=== PATIENT | female | born 1975 | race African-American/Black ===

== ENCOUNTER 2019-05-19 15:09 | Outpatient (CLI) | payer OTHER ==
--- NOTE | 2019-05-19 15:50 | RAD ---
XR Chest Pa Lat STANDARD HISTORY: Cough COMPARISON: None FINDINGS: The heart size is normal. The lungs are well expanded without focal areas of consolidation, pneumothorax or pleural effusions. IMPRESSION: No radiographic evidence of acute cardiopulmonary process.
--- NOTE | 2019-05-19 15:51 | RAD ---
XR Knee Lt 3 View HISTORY: Left knee pain FINDINGS: No fracture or dislocation is identified.
== END 2019-05-19 15:10 | disposition home or self-care (01) ==
LOC: SCSRAD 15:09
PROVIDERS: ATTEND Family Medicine
DX: S83.005S Unspecified dislocation of left patella, sequela (principal); R05 Cough
CPT/HCPCS: 36415; 71046; 83520; 85652; 86038; 86140; 86200; 86225

== ENCOUNTER 2019-06-24 08:24 | Outpatient (CLI) | payer OTHER ==
--- NOTE | 2019-06-24 09:02 | MMO ---
Bilateral MAMMO Bilat Screen [facility]. CLINICAL HISTORY: Patient is 44 years old and is seen for screening. The patient has no family history of breast cancer. The patient has no personal history of cancer. VIEWS: The views performed were: bilateral craniocaudal with tomosynthesis and bilateral mediolateral oblique with tomosynthesis. This study has been interpreted with the assistance of computer-aided detection. MAMMOGRAM FINDINGS: There are scattered fibroglandular densities. There are no suspicious masses, suspicious calcifications, or new areas of architectural distortion. IMPRESSION: THERE IS NO MAMMOGRAPHIC EVIDENCE OF MALIGNANCY. A ROUTINE FOLLOW-UP MAMMOGRAM IN 1 YEAR IS RECOMMENDED. THE RESULTS OF THIS EXAM WERE SENT TO THE PATIENT. ACR BI-RADS Category 1 - Negative MAMMOGRAPHY NOTE: 1. A negative mammogram report should not delay a biopsy if a dominant of clinically suspicious mass is present. 2. Approximately 10% to 15% of breast cancers are not detected by mammography. 3. Adenosis and dense breasts may obscure an underlying neoplasm. Reported by: KATHY CEDEÑO MD Electonically Signed: [id number]
--- NOTE | 2019-06-24 09:37 | ULT ---
LEFT LOWER EXTREMITY VENOUS DUPLEX ULTRASOUND INCLUDING COLOR AND SPECTRAL DOPPLER IMAGING: HISTORY: Left leg and calf pain, prior dislocation of left patella. FINDINGS: Exam includes visualization of the left common femoral, superficial femoral, profunda femoral, greate r saphenous, popliteal, trifurcation, and posterior tibial vein regions. There is phasic flow at all levels with normal compressibility and normal augmentation. No intraluminal thrombus. IMPRESSION: No evidence for deep venous thrombosis. POS: [facility]
== END 2019-06-24 08:25 | disposition home or self-care (01) ==
LOC: BICMAMMO 08:24
PROVIDERS: ATTEND Family Medicine
DX: Z12.31 Encounter for screening mammogram for malignant neoplasm of breast (principal); S83.005S Unspecified dislocation of left patella, sequela
CPT/HCPCS: 77063; 77067